=== PATIENT | male | born 1940 | race African-American/Black ===

== ENCOUNTER 2023-12-24 13:34 | Inpatient (IN) | payer MEDICARE, MEDICAID, SELFPAY ==
[2023-12-24] VITALS (13 sets, daily range): BP systolic 128–176; BP diastolic 61–101; PULSE 69–77; RESP 16–28; TEMP 36.2–36.8; O2SAT 96–100; BMI 22.9
--- NOTE | ~2023-12-24 | CT_ITS ---
EXAMINATION: CT brain wo con DATE: 12/24/2023 13:41 INDICATION: Left-sided facial droop TECHNIQUE: Computed tomography (CT) of the head was performed without intravenous contrast. Sagittal and coronal reconstructions were performed. The mA was adjusted according to patient size. Iterative reconstruction technique was employed. The dose-length product was 681.00 mGy-cm. COMPARISON: None FINDINGS: Region of encephalomalacia in the posterior right frontal lobe consistent with sequela of old infarct . No acute intracranial hemorrhage or acute infarction. There is mild scattered white matter hypoatte nuation consistent with chronic small vessel ischemic disease. The fluid overlying the left frontal lobe appears slightly thicker and with subtly increased density relative to the CSF overlying the rig ht frontal lobe which is suspicious for a chronic subdural Symmetric prominence of the sulci consiste nt with mild to moderate age-appropriate diffuse cerebral volume loss. Ventricles are normal and symm etric. No mass/mass effect. Symmetric senescent bilateral basal ganglia calcifications. Changes of bi lateral intraocular lens replacement. The orbits and mastoid air cells are normal. Mild mucosal thic kening the right ethmoid and maxillary sinuses. IMPRESSION: 1. Small old posterior right frontal lobe infarct. No acute intracranial process. 2. Suspicion for small left frontal chronic subdural hematoma/hygroma. Reviewed, dictated and finalized at location A. IMPRESSION: 1. Small old posterior right frontal lobe infarct. No acute intracranial proces s. 2. Suspicion for small left frontal chronic subdural hematoma/hygroma.
--- NOTE | ~2023-12-24 | XR_ITS ---
EXAMINATION: XR chest 1V portable DATE: 12/24/2023 14:05 INDICATION: Stroke TECHNIQUE: frontal view of the chest was obtained. COMPARISON: None FINDINGS: The lungs are clear with no focal airspace opacities, pulmonary edema, pleural effusion or pneumothor ax. The cardiomediastinal silhouette is normal. Dual lead pacemaker/AICD seen with leads projecting o marley the expected locations of the right atrium and right ventricle. There are bridging osteophytes at multiple levels in the thoracic spine consistent with diffuse idiopathic skeletal hyperostosis (DISH ). IMPRESSION: 1. No acute cardiopulmonary disease. Reviewed, dictated and finalized at location A.
--- NOTE | ~2023-12-24 | CT_ITS ---
EXAMINATION: CT abdomen pelvis wo con DATE: 12/24/2023 23:39 INDICATION: pelvic pain TECHNIQUE: Computed tomography (CT) of the abdomen and pelvis was performed without intravenous contr ast. Automated exposure control and iterative reconstruction technique were employed. The dose-length product was 379.33 mGy-cm. COMPARISON: None. FINDINGS: Lower thorax: Pacer/AICD leads, in good position. Mild bibasilar scarring. Liver: Normal. Biliary/Gallbladder: Gallbladder is normal. No bile duct dilation. Pancreas: No mass or duct dilation. Spleen: Normal. Adrenals:No mass. Kidneys: Mild bilateral hydronephrosis. Mild perinephric stranding. Punctate nonobstructing left lowe r pole calcification. Right midpole scar. No suspicious mass. GI tract: No small or large bowel dilation. Normal appendix. Diverticulosis without diverticulitis. Mesentery/Peritoneum: No ascites, mass, or free air. Retroperitoneum: No mass. Atherosclerotic abdominal aortic and/or arterial calcifications. Pelvis: Distended urinary bladder containing several gas bubbles and hyperdense, dependent intralumin al material. Marked prostatomegaly. Right hydrocele. Soft Tissues: Subcutaneous stranding in the bilateral lower abdominal subcutaneous fat, likely inject ion sites. Small uncomplicated umbilical hernia. Bones: No acute osseous finding. Grade 1 anterolisthesis at L4-5. Severe central canal narrowing at L4-L5 secondary to the listhesis and degenerative disc, ligamentum, and facet changes. IMPRESSION: Distended urinary bladder, likely secondary to outlet obstruction from marked prostatomegaly. Bladder gas may be secondary to recent catheterization. Dependent hyperdense bladder debris may represent he morrhagic, proteinaceous, or crystalline debris, correlate with urinalysis. Mild bilateral hydronephrosis, presumably secondary to urinary retention. Ascending infection is not excluded. Right hydrocele. Severe central canal stenosis at L4-5 secondary to degenerative changes. Reviewed, dictated and finalized at location K. IMPRESSION: Distended urinary bladder, likely secondary to outlet obstruction from marked p rostatomegaly. Bladder gas may be secondary to recent catheterization. Dependen t hyperdense bladder debris may represent hemorrhagic, proteinaceous, or ramonita lline debris, correlate with urinalysis. Mild bilateral hydronephrosis, presumably secondary to urinary retention. Ascen ding infection is not excluded. Right hydrocele. Severe central canal stenosis at L4-5 secondary to degenerative changes.
--- NOTE | 2023-12-24 13:35 | ECG_ITS ---
Test Date: 2023-12-24 13:57:03 Measurements Intervals [place] Rate: 71 P: 30 TN: 162 QRS: -1 QRSD: 128 T: 96 QT: 407 QTc: 442 Interpretive Statements SINUS RHYTHM MODERATE INTRAVENTRICULAR CONDUCTION DELAY [105+ ms QRS DURATION, 80+ ms Q/S IN V1/V2, NO Q AND 60+ ms R IN I/aVL/V5/V6] NONSPECIFIC T-WAVE ABNORMALITY No previous ECG available for comparison Electronically Signed On 12-25-2023 14:26:39 CDT by Cindy Hogan M.D.
--- NOTE | 2023-12-24 13:36 | ED.NEUROSD ---
HPI - Neuro Symptoms/Deficit General Chief Complaint: Suspected CVA Stated Complaint: cva Time Seen by Provider: 12/24/23 13:36 History of Present Illness HPI Narrative: 83-year-old male present to the emergency department for evaluation for of possible acute stroke. 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 Patient states that approximately 1:00 p.m. he had onset of left facial spasm. He ports he was having drooling and his face was pulling to the left. Patient denies any other, clonic activity and denies having new numbness or weakness. Upon arrival to the emergency department by EMS at 1337 patient states he feels that his symptoms have significantly improved. Patient was sent to CT scan immediately after arrival. Patient had a CVA approximately 1 year ago and was [facility]. Patient does have residual left-sided facial droop from the CVA Related Data Allergies Allergy/AdvReac Type Severity Reaction Status Date / Time Iodinated Contrast Media Allergy Severe Unknown Verified 02/21/23 21:23 metrizamide Allergy Unknown Verified 02/21/23 20:49 TOMATOES, SEAFOOD Allergy Unknown Uncoded 02/21/23 20:49 Review of Systems Review of Systems: All systems reviewed & are unremarkable except as noted in HPI and below PMFSH Social History Social History Alcohol intake: unknown Substance use: unknown Spiritual care concerns: No Course Course Emergency Course: Patient was admitted to [facility] for observation Vital Signs Vital signs: Vital Signs Temperature 98.2 F 12/24/23 13:45 Pulse Rate 72 12/24/23 13:45 Respiratory Rate 23 H 12/24/23 13:45 Blood Pressure 147/72 H 12/24/23 13:45 Pulse Oximetry 99 12/24/23 13:45 Oxygen Delivery Room Air 12/24/23 13:45 Temperature 98.2 F 12/24/23 13:45 Pulse Rate 70 12/24/23 18:42 Respiratory Rate 16 12/24/23 18:42 Blood Pressure 135/94 H 12/24/23 18:42 Pulse Oximetry 98 12/24/23 18:42 Oxygen Delivery Room Air 12/24/23 13:45 MDM - Neuro Symptoms/Deficit MDM Narrative Medical decision making narrative: 83-year-old male presenting to the emergency department for evaluation for possible CVA. Patient describes symptoms that are consistent with a focal aware seizure. Patient's CT scan showed no acute stroke but did show a chronic stroke and did also show a possible chronic subdural hematoma versus a hygroma. Case was discussed with neurology/stroke at [facility] and they did not feel the patient needed to be transferred. They felt the patient did not need to be transferred for emergent MRI. The felt the patient could stay at our facility and they did not make recommendations regarding anti epileptics. I discussed the case with Dr. Carlson and he was comfortable with the patient staying for observation and did recommend Keppra. Patient was started on Keppra while in the emergency department. I was able to discuss the case with neuro surgery at [facility] and they did not feel that the patient needed to be transferred. Patient and family are updated on the results of workup and plan for admission. Case discussed with hospitalist patient was accepted for admission. Differential Diagnosis Differential diagnosis: Likely convulsions, subarachnoid hemorrhage, cerebrovascular accident and transient cerebral ischemia Lab Data Attestation: I reviewed the patient's lab results. 12/24/23 13:57 12/24/23 13:57 Labs: Lab Results 12/24/23 12/24/23 Range/Units 13:57 14:35 WBC 5.8 (4.5-10.0) K/mm3 RBC 5.09 (4.6-6.20) M/mm3 Hgb 12.7 L (14.0-18.0) g/dL Hct 42.7 (42.0-52.0) % MCV 83.9 (80-100) fl MCH 25.0 L (26-34) pg MCHC 29.7 L (32-36) g/dl RDW 16.0 H (11.5-14.5) % Plt Count 203 (150-375) k/mm3 MPV 11.1 H (7.4-10.4) fl Immature Gran % (Auto) 0.2 (0-0.5) % Neut % (Auto) 58.5 (45.5-73.1) % Lymph % (Auto) 27.5 (18.3-44.2) % M
[2023-12-24 14:08] LABS: Basophils Percent Auto 0.5 % (0.2-1.2); Eosinophils Absolute Auto 0.3 K/mm3 (0-0.3); Eosinophils Percent Auto 4.3 % (0-4.4); Hematocrit 42.7 % (42.0-52.0); Hemoglobin 12.7 g/dL (14.0-18.0); Immature Granulocyte Absolute 0.01 K/mm3 (0.00-0.031); Immature Granulocyte Percent A 0.2 % (0-0.5); Lymphocytes Percent Auto 27.5 % (18.3-44.2); Mean Corpuscular HGB Conc 29.7 g/dl (32-36); Mean Corpuscular Volume 83.9 fl (80-100); Mean Platelet Volume 11.1 fl (7.4-10.4); Monocytes Absolute Auto 0.5 K/mm3 (0.1-0.6); Neutrophils Absolute Auto 3.4 K/mm3 (1.3-6.7); Neutrophils Percent Auto 58.5 % (45.5-73.1); Platelet Count Result 203 k/mm3 (150-375); Red Blood Count 5.09 M/mm3 (4.6-6.20); White Blood Count 5.8 K/mm3 (4.5-10.0)
[2023-12-24 14:18] LABS: INR 1.1
[2023-12-24 14:19] LABS: Hypochromasia 1+; Ovalocytes 1+; Partial Thromboplastin Time 29.4 Seconds (22.3-36.8); Platelet Estimate Adequate (Adequate); Schistocytes None Seen
--- NOTE | 2023-12-24 14:19 | PC.NURSE ---
pt requested his sister, Flo , be called to let her know he was here. pt sister was called at this time
[2023-12-24 14:21] LABS: Alanine Aminotransferase 47 U/L (6-50); Albumin Level 4.5 g/dL (3.5-5.1); Alkaline Phosphatase 115 U/L (38-126); Anion Gap 10 mmol/L (4-12); Aspartate Amino Transferase 71 U/L (17-59); Bilirubin,Total 1.1 mg/dL (0.2-1.3); Blood Urea Nitrogen 17 mg/dL (9-20); Calcium 8.7 mg/dL (8.4-10.2); Carbon Dioxide 23 mmol/L (22-30); Chloride 108 mmol/L (98-107); Estimated CRCL calculation 49 ml/min; Estimated Glomerular Filt Rate > 60; Glucose 135 mg/dL (65-110); Potassium 4.4 mmol/L (3.4-5.0); Sodium 141 mmol/L (137-145)
[2023-12-24 14:38] LABS: Glucose Point of Care 112 mg/dl (65-105)
[2023-12-24 14:41] LABS: Troponin I < 0.012 ng/mL (0.000-0.034)
--- NOTE | 2023-12-24 20:37 | ED.NEUROSD ---
HPI - Neuro Symptoms/Deficit General Chief Complaint: Suspected CVA Stated Complaint: cva Time Seen by Provider: 12/24/23 13:36 History of Present Illness HPI Narrative: An 83-year-old male with previous history of a CVA in April 2023 was in a rehab, history of coronary disease, history of renal cyst with fistula, history of diabetes, and history of having a pacemaker. Came to the hospital because he noticed some twitching in his left side of the face and clenching of the teeth. Patient initially thought it was a stroke we came to the emergency room. Patient denied any history of any PE but reduce seizure disorders no history of any headaches head injuries no nausea vomiting diarrhea no upper or lower extremity weakness no slurred speech or difficulty swallowing no cough shortness of breath. Alert awake x3 patient was fully back to baseline when he was in the emergency room while I was examining the patient Related Data Allergies Allergy/AdvReac Type Severity Reaction Status Date / Time Iodinated Contrast Media Allergy Severe Unknown Verified 02/21/23 21:23 metrizamide Allergy Unknown Verified 02/21/23 20:49 TOMATOES, SEAFOOD Allergy Unknown Uncoded 02/21/23 20:49 Review of Systems Review of Systems: All systems reviewed & are unremarkable except as noted in HPI and below PMFSH Social History Social History Alcohol intake: unknown Substance use: unknown Spiritual care concerns: No Exam Narrative: GENERAL: Well appearing, no acute distress. HEAD: Normocephalic, atraumatic. NECK: Supple. No adenopathy, no masses. RESPIRATORY: respirations nonlabored. , no rales, wheezing. CARDIOVASCULAR: Regular rate and rhythm without murmurs, . Peripheral pulses 2+ and equal bilaterally. ABDOMINAL: Soft, nontender, nondistended, no hepatosplenomegaly. Normoactive BS. MUSCULOSKELETAL: no Epigastric and no hypochondrial tenderness SKIN: Warm, dry, NEURO: A&O X3. Moves all extremities Course Vital Signs Vital signs: Vital Signs Temperature 36.8 C 12/24/23 13:45 Pulse Rate 72 12/24/23 13:45 Respiratory Rate 23 H 12/24/23 13:45 Blood Pressure 147/72 H 12/24/23 13:45 Pulse Oximetry 99 12/24/23 13:45 Oxygen Delivery Room Air 12/24/23 13:45 Temperature 36.8 C 12/24/23 13:45 Pulse Rate 70 12/24/23 18:42 Respiratory Rate 16 12/24/23 18:42 Blood Pressure 135/94 H 12/24/23 18:42 Pulse Oximetry 98 12/24/23 18:42 Oxygen Delivery Room Air 12/24/23 13:45 MDM - Neuro Symptoms/Deficit Lab Data 12/24/23 13:57 12/24/23 13:57 Labs: Lab Results 12/24/23 12/24/23 Range/Units 13:57 14:35 WBC 5.8 (4.5-10.0) K/mm3 RBC 5.09 (4.6-6.20) M/mm3 Hgb 12.7 L (14.0-18.0) g/dL Hct 42.7 (42.0-52.0) % MCV 83.9 (80-100) fl MCH 25.0 L (26-34) pg MCHC 29.7 L (32-36) g/dl RDW 16.0 H (11.5-14.5) % Plt Count 203 (150-375) k/mm3 MPV 11.1 H (7.4-10.4) fl Immature Gran % (Auto) 0.2 (0-0.5) % Neut % (Auto) 58.5 (45.5-73.1) % Lymph % (Auto) 27.5 (18.3-44.2) % [place] % (Auto) 9.0 H (2.6-8.5) % Eos % (Auto) 4.3 (0-4.4) % Baso % (Auto) 0.5 (0.2-1.2) % Lymph # (Auto) 1.60 (0.9-3.2) K/mm3 [place] # (Auto) 0.5 (0.1-0.6) K/mm3 Eos # (Auto) 0.3 (0-0.3) K/mm3 Baso # (Auto) 0.0 (0.0-0.1) K/mm3 Abs Immat Gran (auto) 0.01 (0.00-0.031) K/mm3 Absolute Neuts (auto) 3.4 (1.3-6.7) K/mm3 Absolute Nucleated RBC 0.000 (0.0-0.012) K/mm3 Nucleated RBC % 0.0 (0.0-0.2) % Platelet Estimate Adequate (Adequate) Hypochromasia 1+ Ovalocytes 1+ Schistocytes None seen PT 15.0 H (11.1-14.7) Seconds INR 1.1 APTT 29.4 (22.3-36.8) Seconds Sodium 141 (137-145) mmol/L Potassium 4.4 (3.4-5.0) mmol/L Chloride 108 H (98-107) mmol/L Carbon Dioxide 23 (22-30) mmol/L Anion Gap 10 (4-12) mmol/L BUN 17 (9-20) mg/dL Creatinine 1.10 (0.7-1.3) mg/dL Skylar
--- NOTE | 2023-12-24 20:41 | PM.IMHP ---
H&P: HPI History of Present Illness Date/Time: 12/24/23 20:41 Chief Complaint: Twitching and weakness on the left side of the face Narrative: An 83-year-old male with previous history of a CVA in April 2023 was in a rehab, history of coronary disease, history of renal cyst with fistula, history of diabetes, and history of having a pacemaker. Came to the hospital because he noticed some twitching in his left side of the face and clenching of the teeth. Patient initially thought it was a stroke we came to the emergency room. Patient denied any history of any PE but reduce seizure disorders no history of any headaches head injuries no nausea vomiting diarrhea no upper or lower extremity weakness no slurred speech or difficulty swallowing no cough shortness of breath. Alert awake x3 patient was fully back to baseline when he was in the emergency room while I was examining the patient Review of Systems Review of Systems: All systems reviewed & are unremarkable except as noted in HPI and below PMFSH Social History Social History Alcohol intake: unknown Substance use: unknown Spiritual care concerns: No Meds Home Medications and Allergies Home Medications Medication Instructions Recorded Confirmed Type acetaminophen 325 mg tablet (Mapap 650 mg PO Q6H PRN Mild Pain (1-3) 03/04/23 Rx (acetaminophen)) Or Fever #30 tabs aspirin 81 mg chewable tablet 81 mg PO DAILY #30 tabs 03/04/23 Rx (Children's Aspirin) atorvastatin 40 mg tablet 40 mg PO HS #30 tabs 03/04/23 Rx carvedilol 3.125 mg tablet (Coreg) 6.25 mg PO BIDWM #60 tabs 03/04/23 Rx fluoxetine 20 mg tablet 20 mg PO DAILY #30 tabs 03/04/23 Rx gabapentin 300 mg capsule 300 mg PO TID #90 caps 03/04/23 Rx (Neurontin) insulin glargine 100 unit/mL (3 15 unit (0.15 mL) subcut QHS #15 mL 03/04/23 Rx mL) subcutaneous pen insulin lispro 100 unit/mL 5 unit (0.05 mL) subcut TIDWM #10 03/04/23 Rx subcutaneous solution (Humalog mL U-100 Insulin) losartan 25 mg tablet 50 mg PO DAILY #30 tabs 03/04/23 Rx pantoprazole 40 mg tablet,delayed 40 mg PO DAILY #30 tabs 03/04/23 Rx release polyethylene glycol 3350 17 gram 17 g PO QAM #30 ea 03/04/23 Rx oral powder packet (Miralax) sennosides 8.6 mg-docusate sodium 1 tab PO DAILY #30 tabs 03/04/23 Rx 50 mg tablet (Senokot-S) tizanidine 2 mg tablet 2 mg PO TID PRN Muscle Spasm #30 03/04/23 Rx tabs Allergies Allergy/AdvReac Type Severity Reaction Status Date / Time Iodinated Contrast Media Allergy Severe Unknown Verified 02/21/23 21:23 metrizamide Allergy Unknown Verified 02/21/23 20:49 TOMATOES, SEAFOOD Allergy Unknown Uncoded 02/21/23 20:49 Vital Signs Vital Signs - 24 hr 12/24/23 13:45 12/24/23 14:00 12/24/23 13:57 Temperature 36.8 C Pulse Rate 72 77 76 Respiratory Rate 23 H 16 21 H Blood Pressure 147/72 H 149/73 H 158/78 H Pulse Oximetry 99 100 100 Oxygen Delivery Room Air 12/24/23 14:01 12/24/23 14:31 12/24/23 15:01 Temperature Pulse Rate 70 70 70 Respiratory Rate 19 19 18 Blood Pressure 149/73 H 133/84 136/68 Pulse Oximetry 100 99 98 Oxygen Delivery 12/24/23 15:17 12/24/23 15:31 12/24/23 16:16 Temperature Pulse Rate 75 72 71 Respiratory Rate 21 H 23 H 17 Blood Pressure 132/101 H 136/84 128/88 Pulse Oximetry 97 98 97 Oxygen Delivery 12/24/23 17:33 12/24/23 18:42 Temperature Pulse Rate 77 70 Respiratory Rate 28 H 16 Blood Pressure 156/76 H 135/94 H Pulse Oximetry 96 98 Oxygen Delivery H&P: Results Labs Labs: Short CBC 12/24/23 Range/Units 13:57 WBC 5.8 (4.5-10.0) K/mm3 Hgb 12.7 L (14.0-18.0) g/dL Hct 42.7 (42.0-52.0) % Plt Count 203 (150-375) k/mm3 BMP 12/24/23 13:57 Sodium 141 Potassium 4.4 Chloride 108 H Carbon Dioxide 23 BUN 17 Creatinine 1.10 Glucose 135 H Calcium 8.7 Cardiac Enzymes 12/24/23 Range/Units 13:57 Troponin I < 0.012 (0.000-0.034) ng/mL [place]
[2023-12-24] MEDS: levETIRAcetam 1000MG/NACL100ML 1,000 MG/100 ML BAG 400 MG IVPB (21:22)
--- NOTE | 2023-12-24 22:07 | ADMGEN ---
This patient, Nidhi Alford, was admitted to Medical Room 343-01. Patient/family oriented to hospital policies and general routines including ID bracelet, bed and alarms, visiting hours, pain management, procedures, bathroom and other care routines, personal items, smoking policy, room service/diet, and visiting hours. Information on how to activate the Rapid Response Team has been discussed. Patient/Family are encouraged to report perceived risks to care and to ask questions if they do not understand what they are told or what they should do.
[2023-12-24 22:40] LABS: Cholesterol 133 mg/dL (0-200); HDL Direct 56 mg/dL; Triglycerides 112 mg/dL (<150)
[2023-12-24 22:51] LABS: LDL Cholesterol Direct 57 mg/dL
[2023-12-25] VITALS (11 sets, daily range): BP systolic 117–129; BP diastolic 50–60; PULSE 69–84; RESP 14–20; TEMP 36.5–37.1; O2SAT 94–100
[2023-12-25] MEDS: HYDROmorphone HCL INJ (*CRX) 1 MG/ML SYR 0.5 MG IV PUSH (01:06)
--- NOTE | 2023-12-25 01:43 | WPDURCON ---
Assessment and Plan Assessment and plan (1) Urinary retention: Code(s): R33.9 - Retention of urine, unspecified Status: Acute (2) BPH loc w urin obs/LUTS: Code(s): N40.1 - Benign prostatic hyperplasia with lower urinary tract symptoms Status: Acute (3) Hematuria: Qualifiers: Hematuria type: gross Qualified Code(s): R31.0 - Gross hematuria Code(s): R31.9 - Hematuria, unspecified Status: Acute Plan PLAN: -Posey placement -- bedside attempt failed, used cystoscope for difficult posey placement -Irrigated clots out of bladder -NPO at midnight in case of need for further intervention -Keep posey at least 1 week, can have void trial with [facility] (Cj Alarcon or Dr. Elida Hopkins) in 1-2 weeks -May be considered for PAE, pending his contrast allergy severity BEDSIDE PROCEDURE: I attempted to pass a 20Fr Coude, but met significant resistance in the proximal urethra. I suspected a false passage given his prior multiple failed posey attempts and report of a posey balloon being inflated into the prostate. Using a flexible cystoscope, I was able to appreciate a large false passage and was able to anteriorly navigate the scope up into the bladder. There was a lot of blood product in the bladder, so visibility was poor. I placed a sensor wire through the scope, then passed a 20Fr [place]-tipped posey catheter over the wire with return of >500cc dark red, opaque, urine. The patient had near-immediate discomfort relief. Due to the urine looking so dark with clots, I used 500cc of sterile water and manually irrigated the bladder -- I was able to evacuate about 30-50cc of clots before the urine became light pink. I left the posey to gravity drainage. Urology Consult Note HPI Date Seen: 12/25/23 Requesting Physician: Tammie Zuniga MD Primary Care Provider: Tania Adams, DO Consult Narrative Narrative: Nidhi Alford is a 83 year old male admitted for possible seizure activity whose workup included a UA -- he was unable to void, so catheterization attempts were made but unsuccessful. Urology was consulted around 11PM 12/24/2023 that patient had bladder scan >300cc, and was writhing around in pain. The floor nursing staff had attempted a 20Fr coude and were unsuccessful. Per report, at least 1 posey attempt included blowing up the balloon without having return of urine first. I obtained a CT AP Noncon, showing a distended bladder, blood clot in the bladder, and a 130cc prostate. Cr is 1.1, Hct 42 Urology was called in for difficult posey. Notably, patient sees our [facility] [employer] (Cj Alarcon) at [facility], and has plans for a scrotal skin tag removal with Dr. Hopkins on February 03. Review of Systems Review of Systems: All systems reviewed & are unremarkable except as noted in HPI and below [facility] Social History Social History Smoking status: Never smoker Alcohol intake: never Substance use: never Substance use type: does not use Do You Feel Safe in your Home?: Yes Lack of Transportation: No Lack of Food: Never True Current Housing: I Have Housing Concerned About Future Housing: No Difficulty Paying Gas/Electric Bills: No Difficulty Paying for Meds: No Currently Unemployed: No Education: Associate Degree Difficulty w/ Childcare or Family Care: No Spiritual care concerns: No Meds Home Medications and Allergies Home Medications Medication Instructions Recorded Confirmed Type aspirin 81 mg chewable tablet 81 mg PO DAILY #30 tabs 03/04/23 12/24/23 Rx (Children's Aspirin) atorvastatin 40 mg tablet 40 mg PO HS #30 tabs 03/04/23 12/24/23 Rx fluoxetine 20 mg tablet 20 mg PO DAILY #30 tabs 03/04/23 12/24/23 Rx insulin glargine 100 unit/mL (3 15 unit (0.15 mL) subcut QHS #15 mL 03/04/23 12/24/23 Rx mL) subcutaneous pen insulin lispro 100 unit/mL 5 unit (0.05 mL) subcut TIDWM #10 03/04/23
[2023-12-25 05:18] LABS: Glucose Point of Care 192 mg/dl (65-105)
--- NOTE | 2023-12-25 06:01 | WPDUROPN2 ---
Progress Note: A&P Assessment and Plan (1) Hematuria: Qualifiers: Hematuria type: gross Qualified Code(s): R31.0 - Gross hematuria Code(s): R31.9 - Hematuria, unspecified Status: Acute (2) BPH loc w urin obs/LUTS: Code(s): N40.1 - Benign prostatic hyperplasia with lower urinary tract symptoms Status: Acute (3) Urinary retention: Code(s): R33.9 - Retention of urine, unspecified Status: Acute Assessment and Plan: Urine dark red but draining well -> irrigates easily without clots / clears quickly No indication for clot evacuation / ok for diet. Catheter will need to stay in place ~2-weeks. Subjective Subjective Date/Time Seen: 12/25/23 06:01 Interval history: Comfortable, sleeping when I arrived Review of Systems Cardiovascular: Cardiovascular: Denies chest pain, Denies lightheadedness, Denies palpitations and Denies dyspnea Respiratory: Respiratory: Denies dyspnea Gastrointestinal: Gastrointestinal: Denies diarrhea, Denies nausea and Denies vomiting Genitourinary: Genitourinary: Denies hematuria and Denies dysuria Endocrine: Endocrine: Denies palpitations Exam Const: General: no acute distress Resp: Effort & Inspection: normal respiratory effort GI: Inspection: non-distended GI Palp: No abdominal tenderness and No Guarding due to palpation present (GI) Auscultation: normal bowel sounds Urinary Catheter: Urinary Catheter: patent and draining and urine dark Objective Data Vital Signs Vital Signs: Vital Signs - 24 hr 12/24/23 13:45 12/24/23 14:00 12/24/23 13:57 Temperature 98.2 F Pulse Rate 72 77 76 Respiratory Rate 23 H 16 21 H Blood Pressure 147/72 H 149/73 H 158/78 H Pulse Oximetry 99 100 100 Oxygen Delivery Room Air 12/24/23 14:01 12/24/23 14:31 12/24/23 15:01 Temperature Pulse Rate 70 70 70 Respiratory Rate 19 19 18 Blood Pressure 149/73 H 133/84 136/68 Pulse Oximetry 100 99 98 Oxygen Delivery 12/24/23 15:17 12/24/23 15:31 12/24/23 16:16 Temperature Pulse Rate 75 72 71 Respiratory Rate 21 H 23 H 17 Blood Pressure 132/101 H 136/84 128/88 Pulse Oximetry 97 98 97 Oxygen Delivery 12/24/23 17:33 12/24/23 18:42 12/24/23 21:15 Temperature Pulse Rate 77 70 Respiratory Rate 28 H 16 Blood Pressure 156/76 H 135/94 H Pulse Oximetry 96 98 Oxygen Delivery Room Air 12/24/23 21:24 12/24/23 22:00 12/25/23 00:00 Temperature 97.1 F L Pulse Rate 70 69 84 Respiratory Rate 20 Blood Pressure 176/61 H Pulse Oximetry 98 Oxygen Delivery 12/25/23 04:00 Temperature Pulse Rate 74 Respiratory Rate Blood Pressure Pulse Oximetry Oxygen Delivery Intake/Output Intake/Output: Intake & Output 12/22/23 12/23/23 12/24/23 12/25/23 23:59 23:59 23:59 23:59 Intake Total 100 Output Total 750 Balance 100 -750 Meds/Results Medications: Active Medications Generic Name Dose Route Start Last Admin Trade Name Freq PRN Reason Stop Dose Admin Hydromorphone HCl 0.5 mg 12/25/23 00:47 12/25/23 01:06 Hydromorphone Hcl Inj (*Crx) 1 Mg/Ml Syr IV PUSH 0.5 mg Q2H PRN Administration Pain Rated 7-10 Levetiracetam 1,000 mg in 100 mls @ 400 mls/hr 12/24/23 21:00 12/24/23 21:37 Keppra Iv IVPB Infused Q12HR [facility] Infusion Insulin Aspart 4 units 12/25/23 08:00 Insulin Aspart (*Bkc) 100 Units/Ml 0.05 units/kg (4 units) SUB-Q TIDWM [facility] Radiology Results: ITS Impressions Head CT 12/24/23 13:41 IMPRESSION: 1. Small old posterior right frontal lobe infarct. No acute intracranial process. 2. Suspicion for small left frontal chronic subdural hematoma/hygroma. Chest X-Ray 12/24/23 14:11 IMPRESSION: 1. No acute cardiopulmonary disease. Abdomen/Pelvis CT 12/24/23 23:46 IMPRESSION: Distended urinary bladder, likely secondary to outlet obstruction from marked prostatomegaly. Bladder gas may be secondary to recent catheter
[2023-12-25 08:09] LABS: Glucose Point of Care 118 mg/dl (65-105)
[2023-12-25 08:58] LABS: Alanine Aminotransferase 39 U/L (6-50); Albumin Level 3.7 g/dL (3.5-5.1); Alkaline Phosphatase 97 U/L (38-126); Anion Gap 7 mmol/L (4-12); Aspartate Amino Transferase 35 U/L (17-59); Bilirubin,Total 1.1 mg/dL (0.2-1.3); Blood Urea Nitrogen 20 mg/dL (9-20); Calcium 8.6 mg/dL (8.4-10.2); Carbon Dioxide 23 mmol/L (22-30); Chloride 113 mmol/L (98-107); Estimated CRCL calculation 47 ml/min; Estimated Glomerular Filt Rate > 60; Glucose 111 mg/dL (65-110); Magnesium 2.3 mg/dL (1.6-2.3); Potassium 4.2 mmol/L (3.4-5.0); Sodium 143 mmol/L (137-145)
--- NOTE | 2023-12-25 09:06 | WPDNEURCNPN ---
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 Focal seizures secondary to underlying stroke. Patient could not have the MRI because of the defibrillator and he is insulin dependent diabetic. If he can not have the MRI he should have the repeat CT scan with and without contrast in about 2 weeks. To rule out the possibility of any underlying tumor or metastatic disease. So even if he goes home that study can be scheduled as an outpatient. As per the review of the urology notes he will have the catheter for the next 2 weeks and he can be followed by the urologist as well. He does have underlying neuropathy secondary to diabetes mellitus in addition to under comorbid condition as per the review of rehab notes. as for the small left frontal chronic subdural hematoma versus hygroma he will not need any surgical intervention for that but again when we have the repeat CT scan the comparative study will clarify with the size is increasing or not. the CT scan of the abdomen and pelvis has documented severe central canal stenosis at L4-5 secondary to degenerative arthritic change which can also result in the bladder dysfunction and might need surgical intervention if things are going along well. Consult date: 12/25/23 Reason for consult: Stroke. HPI: 83 years old right-handed male has been admitted to the hospital through the emergency room for the possibility of the stroke. 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 Approximately around 1:00 p.m. he started having left facial spasms along with the drooling sensation and as if his face is being pulled to the left side. He gave no history of any other associated movements such as jerking of the upper or lower extremity, by the time he came to the emergency room symptomatology had significantly improved. He is allergic to iodine, tomatoes and seafood,on initial evaluation his vital signs were normal, CBC was normal, BMP was normal, CT scan of the head documented small old posterior right frontal lobe infarct with no acute intracranial process such as bleeding but suspicion was raised for the small left frontal chronic subdural hematoma or else hygroma. Patient does have ongoing history of coronary artery disease, renal cyst with fistula, diabetes mellitus, and a pacemaker, ER physician did contact the [facility] regarding the possibility of transfer but they advised considering the finding he can stay in this hospital, considering the focal spasm and the previous history of stroke patient was given anticonvulsant that is Keppra 1000mg IV q.12 hours with the possibility of focal seizure and his insulin was continued as such. Review of Systems Review of Systems: All systems reviewed & are unremarkable except as noted in HPI and below [facility] Social History Social History Smoking status: Never smoker Alcohol intake: never Substance use: never Substance use type: does not use Do You Feel Safe in your Home?: Yes Lack of Transportation: No Lack of Food: Never True Current Housing: I Have Housing
--- NOTE | 2023-12-25 09:20 | PM.IMPN ---
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 - Fistula of stomach and duodenum Status: Acute (4) Congestive heart failure (CHF): Code(s): I50.9 - Heart failure, unspecified Status: Acute (5) Anxiety and depression: Code(s): F41.9 - Anxiety disorder, unspecified; F32.A - Depression, unspecified Status: Acute (6) Hyperlipidemia: Code(s): E78.5 - Hyperlipidemia, unspecified Status: Acute (7) HTN (hypertension): Code(s): I10 - Essential (primary) hypertension Status: Acute (8) Diabetes mellitus: Code(s): E11.9 - Type 2 diabetes mellitus without complications Status: Acute Plan CVA /seizure Stroke evaluation/treatment: -Vitals and monitoring: - neurochecks - q4 hours x 24 hours - Continuous cardiac monitoring and telemetry - neurology consulted- appreciate recommendations Blood pressure management Imaging: -MRI brain without contrast : Ordered if not then repeat non-contrast head CT in 48-72 hours would be reasonable to assess for evolving ischemic infarct -PRN head CT without contrast for neurologic decline Neurology consult seizure precautions continue on Keppra PT/OT Eval and Treatment Labs: LDL and HgbA1C DM Optimize medications sliding scale insulin and Lantus Routine glucose monitoring. Watch for Hypoglycemia. Watch for peripheral neuropathy Encouraged lower extremity and foot care BMI goal < 25 LDL goal <80 1800 ADA diet Lifestyle modification HB A1c -7 on statin Chronic Heart failure with reduced ejection fraction. EKG Chest x-ray Lipid panel, TSH,liver function test, TTE need results in chart Optimize Luis inhibitors and beta-blockers Coreg losartan Daily weights Consider SGLT2 inhibitors if okay with Cards Antiplatelet & Statin therapy aspirin and atorvastatin Loop diuretics as indicate Patient educated about titrating diuretics at home based on weight blood pressure and symptoms. Optimize blood pressure < 130/80 Fall risk assessment History of renal and perinephric abscess. 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 History of previous CVA with residual clear History of hyperlipidemia continue atorvastatin-may need to uptitrated to high intensity therapy Time Spent With Patient Time with patient: 25 - 35 minutes Subjective Date/time seen: 12/25/23 09:20 Interval history: 12/24- seen and examined. Urology seen him this am- Dr Wise- no indication for clot evac., cath would have to stay in for about 2 weeks . Was seen per neurology this am as well- will need repeat CT scan with and without contrast in about 2 weeks (around january 07). He is in bed, comfortable, calm, denies any pain. Family at the bedside. Review of Systems Cardiovascular: Cardiovascular: Denies chest pain, Denies pedal edema, Denies leg edema and Denies lightheadedness Respiratory: Respiratory: Denies chest congestion and Denies cough Gastrointestinal: Gastrointestinal: Denies abdominal pain and Denies constipation Genitourinary: Genitourinary: Reports hematuria Neurologic: Denies confusion Comments: initial presentation: left facial spasms along with the drooling sensation and as if his face is being pulled to the left side. Exam Const: General: comfortable Resp: Effort & Inspection: normal respiratory effort Cardio: Rate: regular rate Rhythm: regular rhythm Urinary Catheter: Urinary Catheter: patent and draining and urine red Skin: General skin exam: normal color Neuro: Other: some weakness to left side but improved from his original presentation Objective D
[2023-12-25] MEDS: INSULIN ASPART (*BKC) 100 UNITS/ML SUB-Q ×3 (09:21→17:21)
[2023-12-25] MEDS: levETIRAcetam 1000MG/NACL100ML 1,000 MG/100 ML BAG 400 MG IVPB ×2 (09:22→20:15)
[2023-12-25 12:16] LABS: Glucose Point of Care 129 mg/dl (65-105)
[2023-12-25 17:21] LABS: Glucose Point of Care 117 mg/dl (65-105)
[2023-12-25 20:34] LABS: Glucose Point of Care 146 mg/dl (65-105)
[2023-12-26] VITALS: PULSE 71
[2023-12-26 04:00] VITALS: PULSE 77
[2023-12-26 04:59] VITALS: BP 151/67; PULSE 77; RESP 16; TEMP 36.6; O2SAT 96
--- NOTE | 2023-12-26 06:53 | WPDUROPN2 ---
Progress Note: A&P Assessment and Plan (1) Hematuria: Qualifiers: Hematuria type: gross Qualified Code(s): R31.0 - Gross hematuria Code(s): R31.9 - Hematuria, unspecified Status: Acute (2) BPH loc w urin obs/LUTS: Code(s): N40.1 - Benign prostatic hyperplasia with lower urinary tract symptoms Status: Acute (3) Urinary retention: Code(s): R33.9 - Retention of urine, unspecified Status: Acute Assessment and Plan: Urine looks great this morning - hematuria has resolved. From our standpoint, home anytime with indwelling catheter x10-12 more days. Subjective Subjective Date/Time Seen: 12/26/23 06:53 Interval history: Comfortable, no complaints Review of Systems Review of Systems: All systems reviewed & are unremarkable except as noted in HPI and below Exam Const: General: no acute distress Resp: Effort & Inspection: normal respiratory effort GI: Inspection: non-distended GI Palp: No abdominal tenderness and No Guarding due to palpation present (GI) Auscultation: normal bowel sounds Urinary Catheter: Urinary Catheter: patent and draining and urine clear Objective Data Vital Signs Vital Signs: Vital Signs - 24 hr 12/25/23 07:34 12/25/23 09:20 12/25/23 12:00 Temperature Pulse Rate 70 70 Respiratory Rate Blood Pressure Pulse Oximetry 94 Oxygen Delivery Room Air Fraction of Inspired Oxygen 12/25/23 14:00 12/25/23 16:00 12/25/23 20:14 Temperature 97.9 F 98.8 F Pulse Rate 69 72 78 Respiratory Rate 14 16 Blood Pressure 120/50 L 129/60 Pulse Oximetry 100 96 Oxygen Delivery Fraction of Inspired Oxygen 12/25/23 20:00 12/25/23 20:00 12/26/23 00:00 Temperature Pulse Rate 74 71 Respiratory Rate Blood Pressure Pulse Oximetry Oxygen Delivery Room Air Fraction of Inspired Oxygen 12/25/23 21:38 12/26/23 04:00 12/26/23 04:59 Temperature 98 F Pulse Rate 77 77 Respiratory Rate 16 Blood Pressure 151/67 H Pulse Oximetry 97 96 Oxygen Delivery Room Air Fraction of Inspired Oxygen Intake/Output Intake/Output: Intake & Output 12/23/23 12/24/23 12/25/23 12/26/23 23:59 23:59 23:59 23:59 Intake Total 100 1680 400 Output Total 2450 650 Balance 100 -770 -250 Meds/Results Medications: Active Medications Generic Name Dose Route Start Last Admin Trade Name Yonis PRN Reason Stop Dose Admin Hydromorphone HCl 0.5 mg 12/25/23 00:47 12/25/23 01:06 Hydromorphone Hcl Inj (*Crx) 1 Mg/Ml Syr IV PUSH 0.5 mg Q2H PRN Administration Pain Rated 7-10 Levetiracetam 1,000 mg in 100 mls @ 400 mls/hr 12/24/23 21:00 12/25/23 20:30 Keppra Iv IVPB Infused Q12HR [facility] Infusion Insulin Aspart 4 units 12/25/23 08:00 12/25/23 17:21 Insulin Aspart (*Bkc) 100 Units/Ml 0.05 units/kg (4 units) 4 units SUB-Q Administration TIDWM [facility] Radiology Results: ITS Impressions Head CT 12/24/23 13:41 IMPRESSION: 1. Small old posterior right frontal lobe infarct. No acute intracranial process. 2. Suspicion for small left frontal chronic subdural hematoma/hygroma. Chest X-Ray 12/24/23 14:11 IMPRESSION: 1. No acute cardiopulmonary disease. Abdomen/Pelvis CT 12/24/23 23:46 IMPRESSION: Distended urinary bladder, likely secondary to outlet obstruction from marked prostatomegaly. Bladder gas may be secondary to recent catheterization. Dependent hyperdense bladder debris may represent hemorrhagic, proteinaceous, or crystalline debris, correlate with urinalysis. Mild bilateral hydronephrosis, presumably secondary to urinary retention. Ascending infection is not excluded. Right hydrocele. Severe central canal stenosis at L4-5 secondary to degenerative changes. Labs Labs: Laboratory Results - last 24 hr 12/25/23 12/25/23 12/25/23 07:55 08:07 12:11 Sodium 143 Potassium 4.2 Chloride 113 H Carbon Dioxide 23
[2023-12-26 08:00] VITALS: PULSE 72
--- NOTE | 2023-12-26 08:30 | PM.IMPN ---
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 - Fistula of stomach and duodenum Status: Acute (4) Congestive heart failure (CHF): Code(s): I50.9 - Heart failure, unspecified Status: Acute (5) Anxiety and depression: Code(s): F41.9 - Anxiety disorder, unspecified; F32.A - Depression, unspecified Status: Acute (6) Hyperlipidemia: Code(s): E78.5 - Hyperlipidemia, unspecified Status: Acute (7) HTN (hypertension): Code(s): I10 - Essential (primary) hypertension Status: Acute (8) Diabetes mellitus: Code(s): E11.9 - Type 2 diabetes mellitus without complications Status: Acute Plan CVA /seizure Stroke evaluation/treatment: -Vitals and monitoring: - neurochecks - q4 hours x 24 hours - Continuous cardiac monitoring and telemetry - neurology consulted- appreciate recommendations Blood pressure management Imaging: -MRI brain without contrast : Ordered if not then repeat non-contrast head CT in 48-72 hours would be reasonable to assess for evolving ischemic infarct -PRN head CT without contrast for neurologic decline Neurology consult seizure precautions continue on Keppra PT/OT Eval and Treatment Labs: LDL and HgbA1C DM Optimize medications sliding scale insulin and Lantus Routine glucose monitoring. Watch for Hypoglycemia. Watch for peripheral neuropathy Encouraged lower extremity and foot care BMI goal < 25 LDL goal <80 1800 ADA diet Lifestyle modification HB A1c -7 on statin Chronic Heart failure with reduced ejection fraction. EKG Chest x-ray Lipid panel, TSH,liver function test, TTE need results in chart Optimize Luis inhibitors and beta-blockers Coreg losartan Daily weights Consider SGLT2 inhibitors if okay with Cards Antiplatelet & Statin therapy aspirin and atorvastatin Loop diuretics as indicate Patient educated about titrating diuretics at home based on weight blood pressure and symptoms. Optimize blood pressure < 130/80 Fall risk assessment Hematuria -urology following Urine looks great this morning - hematuria has resolved. From our standpoint, home anytime with indwelling catheter x10-12 more days . History of renal and perinephric abscess. 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 History of previous CVA with residual clear History of hyperlipidemia continue atorvastatin-may need to uptitrated to high intensity therapy Time Spent With Patient Time with patient: 25 - 35 minutes Subjective Date/time seen: 12/26/23 08:30 Interval history: 83-year-old male with previous history of a CVA in April 2023 was in a rehab, history of coronary disease, history of renal cyst with fistula, history of diabetes, pacemaker. Came to the hospital because he noticed some twitching in his left side of the face and clenching of the teeth. Patient initially thought it was a stroke. Patient denied any history of any PE, no history of any headaches head injuries no nausea vomiting diarrhea no upper or lower extremity weakness no slurred speech or difficulty swallowing no cough shortness of breath. Alert awake x3 patient was fully back to baseline. Neurology saw him yesterday- started him on Keppra- unable to do MRI due to pacemaker. Urology saw his- posey in place Urine looks great this morning - hematuria has resolved. From our standpoint, home anytime with indwelling catheter x10-12 more days. Review of Systems Cardiovascular: Cardiovascular: Denies chest pain, Denies pedal edema, Denies leg edema and Denies lightheadedness Respiratory: Respiratory: Denies chest congestion and Denie
[2023-12-26 08:48] LABS: Glucose Point of Care 101 mg/dl (65-105)
[2023-12-26] MEDS: levETIRAcetam 1000MG/NACL100ML 1,000 MG/100 ML BAG 400 MG IVPB (08:55)
--- NOTE | 2023-12-26 10:29 | WPDNEUROPN ---
Progress Note: A&P Assessment and Plan (1) Seizure: Code(s): R56.9 - Unspecified convulsions Status: Acute (2) History of stroke: Code(s): Z86.73 - Personal history of transient ischemic attack (TIA), and cerebral infarction without residual deficits Status: Acute Plan Mr. Alford is an 83 year old female with a history of R frontal stroke presenting due to seizure like activity described as twitching of the L side of the face. Concern for focal seizures especially given increased risk of seizure with prior stroke. - Continue Keppra 1000mg BID - Recommend MRI brain as outpatient - Discussed seizure precautions with patient and family - Discussed no driving or operating heavy machinery until seizure free for at least six months - Follow-up in [facility] Neurology clinic in about 2-3 months Subjective Date/time seen: 12/26/23 10:29 Interval history: Mr. Alford is an 83 year male with a history of prior stroke in April 2023 with residual L sided weakness, CAD, DM, pacemaker presenting due to concerns for seizure-like activity. He came to the hospital after having an episode of twitching of the L sided of face with clenching of the teeth. He presented to [place] ED where he did not have any seizure like activity. He was reportedly AOx3 and at baseline at time of evaluation. BP in the ER was in 130-140s systolic. CT head in the ER showed prior R frontal stroke and possible small L frontal chronic subdural hematoma/hygroma. The ER physician discussed the case with [facility] and they did not feel that he needed transfer for MRI. ER physician also discussed case with neurosurgery at [facility] and they also did not feel that patient needed transfer. He has been started on Keppra. He takes aspirin 81mg daily and Lipitor 40mg daily. His LDL is 57 from this admission and A1c is 7.0. MRI cannot be done here at [place] due to his underlying pacemaker. Review of Systems Review of Systems: All systems reviewed & are unremarkable except as noted in HPI and below Exam Const: General: no acute distress and well nourished Nutritional Appearance: well nourished HENMT: Head: normocephalic and atraumatic Ears: hearing grossly normal bilaterally and external ears normal Face/Nose/Sinus: Normal external nose present and normal facial exam Face and sinus: normal facial exam Mouth: Yes Normal oral and palatal mucosa present Eyes: General: appearance normal, both eyes and all related structures Eyelids: eyelids normal Conjunctivae: conjunctivae normal Pupils: Equal, round and reactive pupils present EOM: No Nystagmus present Neck: Neck: normal visual inspection Resp: Effort & Inspection: normal respiratory effort Skin: General skin exam: normal color and no rashes or lesions noted Neuro: Cranial nerves: Yes CN's II-XII intact bilaterally, Yes Equal, round and reactive pupils present, Yes Bilaterally intact EOM present, Yes Nystagmus not present, Yes Normal facial strength present, Yes facial symmetry, Yes Midline tongue present, Yes Symmetric palate elevation present and No Nystagmus present Speech: normal speech Motor exam (neuro): 5/5 motor strength present throughout, Normal motor muscle tone present throughout and Motor abnormalities not present Sensory Exam: normal sensation Coordination: [id number] test normal Extrem: General: normal to inspection Psych: Appearance: grossly normal Mental Status: mental status grossly normal Affect: normal affect Attitude: cooperative Objective Data Vital Signs Vital Signs: Vital Signs - 24 hr 12/25/23 12:00 12/25/23 14:00 12/25/23 16:00 Temperature 36.6 C Pulse Rate 70 69 72 Respiratory Rate 14 Blood Pressure 120/50 L Pulse Oximetry 100 Oxygen Delivery 12/25/23 20:14 12/25/23 20:00 12/25/23 20:00 Temperature 37.1 C Pulse Rate 78 74 Respiratory Rate 16 Blood Pressure 129/60 Pulse Oximetry 96 Oxygen Delivery Room Air 12/26/23 00:00 12/25/23 2
[2023-12-26 12:00] VITALS: PULSE 79
--- NOTE | 2023-12-26 13:37 | PM.DS ---
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 - Fistula of stomach and duodenum Status: Acute (4) Congestive heart failure (CHF): Code(s): I50.9 - Heart failure, unspecified Status: Acute (5) Anxiety and depression: Code(s): F41.9 - Anxiety disorder, unspecified; F32.A - Depression, unspecified Status: Acute (6) Hyperlipidemia: Code(s): E78.5 - Hyperlipidemia, unspecified Status: Acute (7) HTN (hypertension): Code(s): I10 - Essential (primary) hypertension Status: Acute (8) Diabetes mellitus: Code(s): E11.9 - Type 2 diabetes mellitus without complications Status: Acute (9) Hematuria: Qualifiers: Hematuria type: gross Qualified Code(s): R31.0 - Gross hematuria Code(s): R31.9 - Hematuria, unspecified Status: Acute Plan CVA /seizure Stroke evaluation/treatment: -Vitals and monitoring: - neurochecks - q4 hours x 24 hours - Continuous cardiac monitoring and telemetry - neurology consulted- appreciate recommendations Blood pressure management Imaging: -MRI brain without contrast : Ordered-will need to be completed as outpt if not then repeat non-contrast head CT in 48-72 hours would be reasonable to assess for evolving ischemic infarct -PRN head CT without contrast for neurologic decline Neurology consult seizure precautions continue on Keppra PT/OT Eval and Treatment Labs: LDL and HgbA1C DM Optimize medications sliding scale insulin and Lantus Routine glucose monitoring. Watch for Hypoglycemia. Watch for peripheral neuropathy Encouraged lower extremity and foot care BMI goal < 25 LDL goal <80 1800 ADA diet Lifestyle modification HB A1c -7 on statin Chronic Heart failure with reduced ejection fraction. EKG Chest x-ray Lipid panel, TSH,liver function test, TTE need results in chart Optimize Luis inhibitors and beta-blockers Coreg losartan Daily weights Consider SGLT2 inhibitors if okay with Cards Antiplatelet & Statin therapy aspirin and atorvastatin Loop diuretics as indicate Patient educated about titrating diuretics at home based on weight blood pressure and symptoms. Optimize blood pressure < 130/80 Fall risk assessment Hematuria -urology following Urine looks great this morning - hematuria has resolved. From our standpoint, home anytime with indwelling catheter x10-12 more days . 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 Came to the hospital because he noticed some twitching in his left side of the face and clenching of the teeth. Patient initially thought it was a stroke. Patient denied any history of any PE, no history of any headaches head injuries no nausea vomiting diarrhea no upper or lower extremity weakness no slurred speech or difficulty swallowing no cough shortness of breath. Alert awake x3 patient was fully back to baseline. Neurology saw him yesterday- started him on Keppra- unable to do MRI due to pacemaker. Urology saw his- posey in place: Urine looks great this morning - hematuria has resolved. From our standpoint, home anytime with indwelling cath
--- NOTE | 2023-12-26 16:47 | PC.NURSE ---
Extensive education for posey catheter care provided to patient and family. Pt and family return demonstration on all topics. Verbalized understanding.
[2023-12-31 09:38] LABS: Glucose Point of Care 165 mg/dl (65-105)
== END 2023-12-26 15:45 | disposition home health service (06) | DRG 57 ==
LOC: ANHED 18:39 → ANH3MED 20:06
PROVIDERS: Internal Medicine; Admitting Provider General Practice; Emergency Provider Emergency Medicine; PCP Family Medicine; Visit Provider Nurse Practitioner
DX: I69.398 Other sequelae of cerebral infarction (principal); I69.354 Hemiplegia and hemiparesis following cerebral infarction affecting left non-dominant side; K31.6 Fistula of stomach and duodenum; R56.9 Unspecified convulsions; I69.392 Facial weakness following cerebral infarction; I25.10 Atherosclerotic heart disease of native coronary artery without angina pectoris; N40.1 Benign prostatic hyperplasia with lower urinary tract symptoms; R33.8 Other retention of urine; R31.0 Gross hematuria; E11.42 Type 2 diabetes mellitus with diabetic polyneuropathy; I11.0 Hypertensive heart disease with heart failure; I50.9 Heart failure, unspecified; F41.9 Anxiety disorder, unspecified; F32.A Depression, unspecified; E78.5 Hyperlipidemia, unspecified; Z79.4 Long term (current) use of insulin; Z79.82 Long term (current) use of aspirin; Z95.810 Presence of automatic (implantable) cardiac defibrillator
CPT/HCPCS: 36415; 70450; 71045; 74176; 80053; 80061; 82948; 83036; 83735; 84484; 85025; 85610; 85730; 93005; 96365; 96374; 96375; 96376; 97161; 97165; 99285; C1769; G0378; J1170; J1815; J1953